=== PATIENT | female | born 1965 | race Caucasian/White ===

== ENCOUNTER 2018-01-19 14:39 | Outpatient (CLI) | payer BC ==
--- NOTE | 2018-02-04 16:11 | MMO ---
BILATERAL SCREENING MAMMOGRAMS: Date: 01/19/18 Comparison made to prior exams from 2017 and 2016. This patient's mammogram was interpreted with the assistance of computer-aided detection. FINDINGS: Heterogeneously dense glandular pattern. No evidence of mass or distortion. No suspicious calcificati on. No evidence of interval change. Recommend one year follow-up. IMPRESSION: BIRADS 1: Negative POS: [facility]
== END 2018-01-19 14:40 | disposition home or self-care (01) ==
LOC: SCSMAMMO 14:39
PROVIDERS: ATTEND Obstetrics & Gynecology
DX: Z12.31 Encounter for screening mammogram for malignant neoplasm of breast (principal)
CPT/HCPCS: 77067

== ENCOUNTER 2025-02-15 08:54 | Outpatient (CLI) | payer BC | END 2025-02-15 08:55 | disposition home or self-care (01) | LOC: SCSBT 08:54 | PROVIDERS: ATTEND Obstetrics & Gynecology | DX: Z78.0 Asymptomatic menopausal state (principal); M81.0 Age-related osteoporosis without current pathological fracture; M85.851 Other specified disorders of bone density and structure, right thigh; M85.852 Other specified disorders of bone density and structure, left thigh | CPT/HCPCS: 77080 ==